=== PATIENT | male | born 1985 | race Caucasian/White ===

== ENCOUNTER 2022-05-26 14:45 | Outpatient (CLI) | payer OTHER ==
--- NOTE | 2022-05-26 15:24 | SLEEP CARE CONSULTATION ---
Information from patient questionnaire entered by Linette Moore. I have reviewed and concur with the information entered by Linette Moore. This document represents the service I personally performed and the decisions made by me, Ngoc Del Cid ARNP. History of Present Illness Service Date and Time: 05/26/2022 1445 Reason for Visit: New patient Chief Complaint: reports: Unrefreshed sleep, Snoring, Observed pauses in breathing, Frequent awakenings at night Date of Onset: YEARS Usual bedtime: 10-1030 Time it takes to fall asleep: 20-40 Snores at night: Yes Observed to quit breathing while asleep: Yes Sleeps alone due to snoring: Yes (RARELY ) Number of times waking at night: 2-3 Reasons for waking at night: reports: Snoring, Gasping for air (not recently), Other (UNKNOWN REASON, WAKES ME UP ). denies: Choking Toss, Turn, or Twitch while sleeping: No Recalls having dreams: No (rarely) Usually gets out of bed at: 615-630; weekends "maybe a little bit later" Feels refreshed in the morning: Yes (not always) Morning headache: No Sleepy or fatigued during the day: Yes (RARELY) Ever fallen asleep while driving: No Takes day naps: No Prior sleep studies: No Additional HPI information: I had the pleasure of seeing KALYN CALDERON today regarding the possibility of him having a sleep disorder. His current complaints are unrefreshed sleep, snoring, observed pauses in breathing and frequent night awakenings. His has complained of his stopping breathing and his snoring is bothering her. He does not have to sleep separate usually. He will sometimes wake up unrefreshed. Patient states he has woke up gasping for air in the past but nothing recent. Normally when he wakes up at night it is due to snoring, unknown reasons or his waking him up due to his snoring. He states he has not walked in his sleep for at least a year, rarely remembers his dreams but twice a month and does talk in his sleep. He states his father has sleep apnea and is treated. - Parasomnia Symptoms Ever been unable to move upon waking from sleep: No Walks in sleep: Yes (IN THE PAST, "at least a year") Talks in sleep: Yes Ever acted out dreams in sleep: Yes Ever felt weak in the knees when startled or emotional: No Bothered by creepy, crawly, restless sensations in legs: Yes ("itchiness", hard to fall asleep) Problems with memory or concentration: No Subjective Initial [place] Sleepiness Scale score: 4 (05/23/22) Past Medical History Past Medical History: reports: Other (Nose shattered, 10 yrs ago; surgically corrected; bone spur in nose; 2014 deviated septum corrected) Social History The patient's occupation is a AM. Patient is and lives in . Have you smoked in the past 12 months: No Alcohol use: Yes Alcohol amount and frequency: 1-2 DRINKS, 1-2X MONTHLY Caffeine use: Yes Caffeine amount and frequency: 1 SMALL CAN DAILY Family History Family history of sleep disordered breathing: Yes Family Hx Sleep Apnea: Father: Snoring, Sleep apnea - Treated Allergies and Home Medications Known drug allergies: No Drug allergies reviewed: Yes (NKDA) Home medication list reviewed: Yes (no daily medications) Review of Systems Weight gain over past 5 years: 5-10 Cardiovascular: denies: high blood pressure Gastrointestinal: reports: heartburn (1-2 times a month) Neurological: reports: headaches (hx of migraines, now 1-2 times a year), head trauma (knocked unconcious a couple of times) Ear/Nose/Throat: reports: injury to nose (fractured), tonsillectomy, wisdom teeth removed Musculoskeletal: reports: joint pain, back pain Immunologic: reports: allergies to food or environment (shellfish) Physical Exam Vital signs obtained and entered by: NITHIN NIEVES Blood Pressure: 102/64 (left arm ) Cuff size: regular Heart Rate: 62 O2 Saturation: 95 Height: 6 ft 1 in Weight: 189 lb Body Mass Index: 24.9 BMI Classification: Normal Neck circumference: 16 (05/26/22) Mouth and throat: narrow oropharynx Soft palate: long Hard palate: normal Uvula: normal Uvula visualization: 50% Mallampati Class II Tongue: enlarged in size with teeth baker on lateral edges Tonsils: absent bilaterally Neck: normal w/o lymphadenopathy or thyromegaly Heart: regular rate and rhythm Lungs: clear bilaterally Impression and Plan 1. Suspected Obstructive Sleep Apnea-Hypopnea Syndrome, as suggested by a history of loud and irregular snoring, observed cessation of breath while asleep, frequent awakening during the night and unrefreshed sleep. Narrow oropharynx and obesity are common predisposing factors for obstructive sleep apnea-hypopnea syndrome. I recommend proceeding to polysomnography to confirm the diagnosis and to assess severity. If the patient has significant sleep disordered breathing, a manual CPAP titration study will also be performed to find the optimal treatment pressure. I informed the patient of what the sleep studies involve and after some discussion, obtained agreement to proceed. The pathophysiology of obstructive sleep apnea-hypopnea syndrome was discussed with the patient and health risks of cardiovascular and cerebrovascular disease if not treated. Risks of drowsy driving discussed in detail and patient advised to avoid long distance driving and to pulley worker at the first sign of drowsiness. Patient agreed to plan. * Schedule polysomnography * Avoid long distance driving or driving when feeling sleepy. * Avoid alcohol, sedative and muscle relaxant around bedtime. * Maintain a healthy weight. * Review instructions provided by trained office staff on how to prepare for the sleep study. * Return for follow-up after sleep study completed. Counseling Topics: Weight control Visit Type: In Office Time Spent with Patient (minutes): 30 Provider Statement: I spent 100% of the Face to Face Visit with the patient with greater than 50% spent counseling the patient and coordination of care.
[2022-05-26 15:26] VITALS: BP 102/64
== END 2022-05-26 14:46 | disposition home or self-care (01) ==
LOC: SC 14:45
PROVIDERS: ATTEND Nurse Practitioner Family
DX: R06.83 Snoring (principal); G47.8 Other sleep disorders; R06.81 Apnea, not elsewhere classified
CPT/HCPCS: 99203; 99212

== ENCOUNTER 2022-06-15 19:39 | Outpatient (CLI) | payer OTHER | END 2022-06-15 19:40 | disposition home or self-care (01) | LOC: SC 19:39 | PROVIDERS: ATTEND Nurse Practitioner Family | DX: G47.33 Obstructive sleep apnea (adult) (pediatric) (principal) | CPT/HCPCS: 95810 ==

== ENCOUNTER 2022-07-05 13:38 | Outpatient (CLI) | payer OTHER ==
[2022-07-05 14:12] VITALS: BP 98/68
--- NOTE | 2022-07-05 14:12 | SLEEP CARE CONSULTATION ---
Information from patient questionnaire entered by Aurelia Garcia. I have reviewed and concur with the information entered by Aurelia Garcia. This document represents the service I personally performed and the decisions made by , Ngoc Del Cid ARNP. History of Present Illness Service Date and Time: 07/05/2022 1338 Initial [place] Sleepiness Scale score: 4 (05/23/22) Current [place] Sleepiness Scale score: 4 (07/05/2022) Additional HPI information: KALYN CALDERON returns for follow up and results of the recently performed polysomnography. I explained the pathophysiology behind obstructive sleep apnea. We then spent quite a bit of time discussing different treatment options. For mild obstructive sleep apnea, surgery and oral appliance are alternatives to nasal CPAP therapy but in moderate or severe cases, nasal CPAP is the most effective and reliable treatment. Because apnea is primarily in supine position, then positional management therapy could be effective. Methods discussed such as positioning with pillows to prevent supine sleep. I reviewed the impact of weight changes on sleep apnea and strongly recommended losing weight. After some discussion, the patient opted to go with the nasal CPAP therapy. Nasal autoCPAP set at 4-15 cmH20 will be ordered with rationale explained. A manual titration study will be ordered if unable to find optimal pressure with office adjustments. I explained how CPAP machine works and what to expect when using the machine. Using CPAP every night in order to get used to it was emphasized. Patient advised to put CPAP mask on before getting into bed so as not to fall asleep without CPAP. To assist acclimation to CPAP use, it could also be used for a short time during day while reading or watching TV. The patient was instructed to call the CPAP supplier to discuss any mechanical problem that may occur. If the mask given is uncomfortable or is difficult to keep on through the night even with adjustment, contact the CPAP supplier as many will replace with another mask style if notified before 30 days. If snoring or perceives is not getting enough air or too much air from the machine, notify this office. Patient does not drink alcohol. Patient was cautioned about risks of drowsy driving until sleepiness symptoms resolve. Patient denies drowsy driving. Sleep Study - Results Type of Sleep Study: Polysomnography (COMPLETED 06/15/2022) Prior sleep studies: No Polysomnography/Home Sleep Study results: IMPRESSION: The quality of the study is good. The patient had normal sleep efficiency. The sleep architecture was relatively normal as well considering the first night effect. Respiratory monitoring showed mild obstructive sleep apnea-hypopnea (AHI = 6.4) associated with frequent arousals, oxyhemoglobin desaturation and mild hypoxia (janes oxygen saturation of 86%). The respiratory events occurred almost exclusively during supine sleep (supine AHI = 8.1; non-supine = 4.94). Snore was moderate to loud in intensity. There was no significant periodic leg movement of sleep. Cardiac rhythm was normal sinus rhythm without significant arrhythmia. No abnormal behavior (parasomnia) observed during the night. Allergies and Home Medications Drug allergies reviewed: Yes (NKDA) Home medication list reviewed: Yes (no changes) Review of Systems Review of systems same as previous: Yes (no changes) Physical Exam Vital signs obtained and entered by: AURELIA Mcgovern MA Blood Pressure: 98/68 (left arm) Cuff size: regular Heart Rate: 88 O2 Saturation: 95 Height: 6 ft 1 in Weight: 196 lb Body Mass Index: 25.8 BMI Classification: Overweight Nasal exam: positive: blood tinged nasal secretions Impression and Plan 1. Obstructive Sleep Apnea-Hypopnea Syndrome, mild, with lowest oxygen saturation of 86%. As mentioned above, the patient will be started on nasal autoCPAP therapy with pressure set at 4-15 cmH2O. Compliance guidelines also reviewed. A copy of compliance guidelines will be given for reference at check out. Because the apnea is more severe supine, I instructed to avoid sleeping supine using pillow positioning until able to start CPAP use. * Nasal auto CPAP therapy, pressure at 4-15 cm H2O. * Avoid alcohol consumption near bedtime. * Avoid supine sleep until using CPAP. * The patient is again cautioned about driving until sleepiness completely resolves. * Return one month after CPAP obtained. I will assess response to therapy and compliance at that time. Counseling Topics: Sleeping position, Weight control Visit Type: In Office Time Spent with Patient (minutes): 20 Provider Statement: I spent 100% of the Face to Face Visit with the patient with greater than 50% spent counseling the patient and coordination of care.
== END 2022-07-05 13:39 | disposition home or self-care (01) ==
LOC: SC 13:38
PROVIDERS: ATTEND Nurse Practitioner Family
DX: G47.33 Obstructive sleep apnea (adult) (pediatric) (principal); E66.3 Overweight; Z68.25 Body mass index [BMI] 25.0-25.9, adult
CPT/HCPCS: 99212; 99213

== ENCOUNTER 2023-06-01 06:58 | Outpatient (CLI) | payer OTHER ==
--- NOTE | 2023-06-01 08:29 | MRI Report ---
PROCEDURE: LUMBAR SPINE WO INDICATIONS: LUMBAR RADICULOPATHY TECHNIQUE: Noncontrast sagittal T1 spin echo and T2 fast echo, sagittal STIR, axial T1 and T2 fast spin echo thr ough the lumbar spine. In cases with scoliosis, additional coronal T2 fast spin echo may be performe d. COMPARISON: Lumbar spine plain films dated 05/23/2023. FINDINGS: Image quality: Excellent. Alignment and Curvature: There is normal bony alignment. Bone Marrow: Marrow is of normal overall signal. No acute vertebral body compression fractures. Spinal Cord: Conus medullaris terminates at the L1 level. Visualized cord demonstrates normal signa l and size. Paraspinous Soft Tissues: No paravertebral masses. T12-L1: Normal in appearance. L1-L2: Mild chronic disc height loss. No canal stenosis or foraminal stenosis. L2-L3: Normal in appearance. L3-L4: Mild chronic disc height loss. Mild facet hypertrophy. No canal stenosis or foraminal stenos is. L4-L5: Mild facet hypertrophy. No canal stenosis or foraminal stenosis. L5-S1: Mild facet hypertrophy. No canal stenosis or foraminal stenosis. IMPRESSION: 1. Mild lower lumbar facet arthropathy. 2. No canal stenosis or foraminal stenosis. Reviewed by: Darvin Nina MD on 06/01/2023 8:28 AM PDT Approved by: Darvin Nina MD on 06/01/2023 8:28 AM PDT Station ID: [id number]
== END 2023-06-01 06:59 | disposition home or self-care (01) ==
LOC: DI 06:58
PROVIDERS: ATTEND Student in an Organized Health Care Education/Training Program
DX: M47.26 Other spondylosis with radiculopathy, lumbar region (principal); M47.27 Other spondylosis with radiculopathy, lumbosacral region

== ENCOUNTER 2024-01-08 07:06 | Outpatient (CLI) | payer OTHER ==
[~2024-01-08 07:06] MED LIST: GADOTERATE MEGLUMINE 10 MMOL/20 ML VIAL ONE
--- NOTE | 2024-01-08 09:56 | MRI Report ---
Knee RT WO CLINICAL INFORMATION: 38 years of age, Male, R KNEE PAIN. COMPARISON: None Technique: Multisequence, multiplanar MRI of the right knee was performed without intravenous contras t. FINDINGS: Menisci: The medial and lateral menisci, including the roots, are intact. Cruciate ligaments: The anterior and posterior cruciate ligaments are intact. MCL/LCL: The MCL is unremarkable. The biceps femoris tendon is unremarkable. The fibular collateral ligament is unremarkable. The iliotibial band is intact. The popliteus muscle and tendon also appear intact. Extensor mechanism: Mild tendinosis of the distal quadricep tendon and the proximal patellar tendon i nsertion. Minimal superolateral Hoffa's fat pad edema. Mild prepatellar subcutaneous edema. Patellofemoral joint: Alignment within the patellofemoral joint is normal. The lateral patellofemora l ligament is intact. Prior sprain of the medial patellofemoral ligament with osteophyte of the media l aspect of the patella. There is mild marrow edema of this osteophyte, nonspecific and may represent reactive marrow edema versus mild marrow contusion. There is high-grade chondral irregularity of the patella with full-thickness chondral fissure in the median ridge. There is multifocal marrow edema o f the patella, most pronounced in the inferior aspect of the patellar facet. The cartilage of the med ial and lateral trochlea are grossly unremarkable. Cartilage and bone: In the medial compartment, the cartilage is well-maintained. In the lateral jennie rtment, there is mild chondral thinning in the nonweightbearing portion of the femoral condyle. No ac clifton fracture. Miscellaneous: No significant joint effusion. No popliteal cyst. No intra-articular bodies are ident ified. Normal muscle signal intensity and morphology. No vascular anomaly. IMPRESSION: 1.Mild tendinosis of the distal quadriceps and proximal patellar tendon. 2.Prior sprain with associated osteophyte of the medial patellofemoral ligament. Marrow edema of this osteophyte, nonspecific and which may represent mild marrow contusion versus reactive. 3.Moderate chondrosis of the patellofemoral compartment with marrow edema in the patella. Reviewed by: Yuly Lindquist MD on 01/08/2024 9:55 AM PDT Approved by: Yuly Lindquist MD on 01/08/2024 9:55 AM PDT Station ID: [id number]
--- NOTE | 2024-01-08 10:34 | MRI Report ---
PROCEDURE: Foot LT W/WO INDICATIONS: MORTONS NEUROMA CONTRAST: clariscan 16.4ml TECHNIQUE: Noncontrast sagittal T1 spin echo and T2 fast spin echo with fat saturation, long-axis T1 spin echo a nd T2 fast spin echo with fat saturation; short-axis T1 spin echo, proton density fast spin echo, and T2 fast spin echo with fat saturation through the forefoot. Post-contrast short axis, long axis, an d sagittal T1 spin echo with fat saturation through the forefoot. COMPARISON: None. FINDINGS: Tendons: Flexor and extensor tendons are intact with normal course, caliber and signal. Muscles: Normal muscle bulk and signal intensity. Ligaments: Lisfranc and radial collateral ligaments are intact. Interosseous spaces: There is lobulated T1 hypointense lesion without significant enhancement within the second and third intermetatarsal space, likely representing patient's suspected Maxwell's neuroma. The lobulated lesion within the second intermetatarsal space measures approximately 0.2 x 1.9 cm (tr ansverse by length), and the lesion within the third intermetatarsal space measures approximately 0.5 x 1.5 cm. Plantar Fascia: Normal. Osseous and Cartilaginous: There is mild marrow edema within both the tibial and hallucal sesamoid, w hich may represent mild sesamoiditis. There is patchy marrow edema within the first metatarsal neck, nonspecific and may be degenerative. There is mild muscle edema of the flexor hallucis brevis about t he sesamoid insertion, favoring reactive. 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 2.Mild sesamoiditis with associated reactive muscle edema. Reviewed by: Yuly Lindquist MD on 01/08/2024 10:32 AM PDT Approved by: Yuly Lindquist MD on 01/08/2024 10:32 AM PDT Station ID: [id number]
[2024-01-08] MEDS: GADOTERATE MEGLUMINE 10 MMOL/20 ML VIAL IVP ONE (18:53)
== END 2024-01-08 07:07 | disposition home or self-care (01) ==
LOC: DI 07:06
PROVIDERS: ATTEND Student in an Organized Health Care Education/Training Program
DX: M79.672 Pain in left foot (principal); M67.961 Unspecified disorder of synovium and tendon, right lower leg; M25.872 Other specified joint disorders, left ankle and foot
CPT/HCPCS: 73720; 73721; A9575

== ENCOUNTER 2024-02-26 08:27 | Outpatient (CLI) | payer OTHER ==
--- NOTE | 2024-02-26 12:15 | XRAY Report ---
PROCEDURE: Knee 4+V RT INDICATIONS: RIGHT KNEE PAIN TECHNIQUE: 3 views of the knee was obtained. COMPARISON: None FINDINGS: Bones: No fractures or dislocations. No suspicious bony lesions. Soft tissues: No knee joint effusion. No suspicious soft tissue calcifications or masses. IMPRESSION: Unremarkable knee radiographs Reviewed by: El Lane MD on 02/26/2024 11:14 AM AKJONA Approved by: El Lane MD on 02/26/2024 11:14 AM AKDT Station ID: [id number]
== END 2024-02-26 08:28 | disposition home or self-care (01) ==
LOC: DI 08:27
PROVIDERS: ATTEND Physician Assistant
DX: M25.561 Pain in right knee (principal)